=== PATIENT | female | born 1950 | race Caucasian/White ===

== ENCOUNTER 2017-01-22 11:40 | Emergency (ER) | payer BC ==
[2017-01-22 11:54] VITALS: BP 128/82; PULSE 78; TEMP 98.5; BMI 29.2
--- NOTE | 2017-01-22 11:57 | PDOC ---
[id number]: RT 2ND FINGER INJURY Time Seen by Provider: 01/22/17 11:43 History Source: Patient Exam Limitations: No Limitations - History of Present Illness Initial Comments: 66 yo F presents with needle stuck in her R second finger. She states that she was sewing with a sewing machine, felt a sudden pain. It happened quickly, and she is not sure how her finger hit the needle. She pulled her hand away as she felt the pain, which resulted in the needle breaking. She attempted to remove herself but was not successful. C/o mod localized pain. No other injuries. Tetanus booster was given approximately 2 years ago. Past History - Past Medical History Allergies/Adverse Reactions: Allergies Allergy/AdvReac Type Severity Reaction Status Date / Time No Known Allergies Allergy Verified 01/22/17 11:42 Home Medications: Ambulatory Orders NK [No Known Home Medication] 01/22/17 Other medical history: DENIES - Surgical History Cholecystectomy: Yes - Immunization History Immunization Up to Date: Yes - Psycho/Social/Smoking Cessation Hx Anxiety: No Suicidal Ideation: No Smoking History: Never smoked Have you smoked in the past 12 months: No Information on smoking cessation initiated: No Hx Alcohol Use: No Drug/Substance Use Hx: No Substance Use Type: None Review of Systems - Review of Systems Able to Perform ROS?: Yes Comments:: GENERAL/CONSTITUTIONAL: No fever or chills. No weakness. MUSCULOSKELETAL: +Broken needle to R 2nd finger. Otherwise no joint or muscle swelling or pain. No neck or back pain. SKIN: No rash HEMATOLOGIC/LYMPHATIC: No anemia, easy bleeding, or history of blood clots. *Physical Exam - Vital Signs Last Vital Signs Temp Pulse Resp BP Pulse Ox 98.5 F 78 20 128/82 99 01/22/17 11:41 01/22/17 11:41 01/22/17 11:41 01/22/17 11:41 01/22/17 11:41 - Physical Exam Comments: GENERAL: Awake, alert, and fully oriented, in no acute distress EXTREMITIES: Normal range of motion, no edema. No clubbing or cyanosis. No cords, erythema, or tenderness SKIN: Warm, Dry, normal turgor, no rashes. +Small metal FB protruding from distal tip of the R 2nd finger- from pad of finger through to the nail. Procedures - Additional Procedures Progress: 01/22/17 12:01 FB removal- R index finger. The needle was greer protruding from the pad of the finger, but only partially from the nail. Finger was cleansed with betadine. Attempted to remove with forceps, unsuccessful. Second attempt was made, this time with hemostat, which was successful. Scant bleeding afterwards. Patient tolerated well. XR ordered to r/o any retained FB, as the needle was broken. Medical Decision Making - Medical Decision Making 01/22/17 12:24 XR reviewed- no retained FB. Stable for DC home. *DC/Admit/Observation/Transfer Diagnosis at time of Disposition: Foreign body of finger of right hand Qualifiers: Encounter type: initial encounter Qualified Code(s): S60.459A - Superficial foreign body of unspecified finger, initial encounter - Discharge Dispostion Disposition: HOME Condition at time of disposition: Stable Admit: No - Patient Instructions Printed Discharge Instructions: DI for Removal of Foreign Body From Skin
== END 2017-01-22 12:25 | disposition home or self-care (01) ==
LOC: FER 11:40
PROC: 0HCQXZZ Extirpation of Matter from Finger Nail, External Approach (ICD-10-PCS; principal; 2017-01-22)
DX: S60.459A Superficial foreign body of unspecified finger, initial encounter (principal); W20.8XXA Other cause of strike by thrown, projected or falling object, initial encounter; Y93.D2 Activity, sewing; Y92.9 Unspecified place or not applicable
CPT/HCPCS: 73140-TC-RT; 99281-25